=== PATIENT | female | born 1950 | race Caucasian/White ===

== ENCOUNTER → 2017-02-21 | Outpatient (CLI) | payer MEDICARE, BC ==
[~2017-02-21] MED LIST: ASPI-630 PO; CALC500T54 PO; ESTR0.5T3 PO; ESTR1PAT42 TD; GABA-585 PO; IBAN3DIS2 IV; MULT-245 PO; OMEP10CA3 PO; PRED1TAB PO; PSYL0.527 PO; SULF500T5 PO
--- NOTE | 2017-02-21 15:33 | RAD ---
DATE: 02/21/2017 EXAM: DIGITAL DIAGNOSTIC BILATERAL HISTORY: Right breast nodule at approximately the 7:00 position. COMPARISON: 08/01/2015. The history of breast reduction surgery and chronic deformity involving the periareolar area of the right breast has been provided This study was interpreted with the benefit of Computerized Aided Detection (CAD). FINDINGS: Breast Density: SCATTERED The breast parenchyma shows scattered fibroglandular densities. Breast parenchyma level B. The area of concern in the right breast was marked. Corresponding to the area of concern is a well-defined lucency having a benign imaging characteristics on mammography. Chronic deformity surrounding the right nipple is noted appearing similar. There are multiple curvilinear areas of calcification in both breasts. There are somewhat more conspicuous than on the previous examination but have an appearance very typical of fat necrosis. A definite suspect group of calcifications is not seen. In addition to the routine views coned compression magnification views were obtained targeted to the area of concern. On the additional images of the well-defined mass remains most consistent with an inclusion cyst or possible rectocele or area of fat necrosis the imaging characteristics are benign. Targeted ultrasound was performed. Corresponding to the palpable abnormality is a well-defined low-density mass. It does not have the characteristics of a simple cyst but the ultrasound features are most compatible with a benign mass. IMPRESSION: Probable benign findings. Right breast mammography and targeted ultrasound are suggested in 6 months to document stability. BI-RADS CATEGORY: 3 PROBABLE BENIGN FINDING(S-SHORT INTERVAL FOLLOW-UP SUGGESTED RECOMMENDED FOLLOW-UP: 6M 6 MONTH FOLLOW-UP PQRS compliance statement: Patient information was entered into a reminder system with a target due date 08/23/2017 for the next mammogram. Mammography is a sensitive method for finding small breast cancers, but it does not detect them all and is not a substitute for careful clinical examination. A negative mammogram does not negate a clinically suspicious finding and should not result in delay in biopsying a clinically suspicious abnormality. "Our facility is accredited by the [employer] Mammography Program." DICTATED AND SIGNED BY: TIFFANY CHENG MD DATE: 02/21/17 1006 MTDD
== END | disposition home or self-care (01) ==
LOC: MAMMO 08:30
PROVIDERS: ATTEND Family Medicine
DX: N63 Unspecified lump in breast (principal)
CPT/HCPCS: 76641; G0204; 77066

== ENCOUNTER 2018-03-30 14:25 | Inpatient (IN) | payer MEDICARE, BC ==
[~2018-03-30] VITALS: Ht 167.6 cm; Wt 90.3 kg
--- NOTE | 2018-03-30 14:45 | ED.ADGEN ---
Adult General HPI HPI The patient tripped while she was going after her dog Friday and fell onto the grass. She injured her left knee and the left side of her face without loss of consciousness. She was dazed. Since the fall, she's had onset of a headache. And today about 1 1/2 hours ago, she began having difficulty with word finding. She notes no focal weakness or numbness. She also has diffuse body aches. She has left knee injury. She came to the ED today because of headache and difficulty word finding. Review of Systems Review of Systems Constitutional: Denies fever or chills Eyes: Denies change in visual acuity, redness, or eye pain HENT: Denies nasal congestion or sore throat Respiratory: Denies cough or shortness of breath Cardiovascular: Denies chest pain or palpitations GI: Denies abdominal pain, nausea, vomiting, bloody stools or diarrhea : Denies dysuria or hematuria Musculoskeletal: Denies back pain or joint pain Integument: Denies rash or skin lesions Neurologic: With headache and aphasia,no focal weakness or sensory changes Endocrine: Denies polyuria or polydipsia All other systems were reviewed and found to be within normal limits, except as documented in this note. Allergies Allergies Allergies Coded Allergies Type Severity Reaction Last Updated Verified Cephalosporins Allergy Unknown 03/30/18 Yes cefazolin Allergy Unknown 03/15/15 Yes Physical Exam Physical Exam Constitutional: Well developed, well nourished, no acute distress, non-toxic appearance. HENT: Normocephalic, with left facial ecchymosis, no deformity, bilateral external ears normal, oropharynx moist, no oral exudates, nose normal. Eyes: PERRLA, EOMI, conjunctiva normal, no discharge. Neck: Normal range of motion, no tenderness, supple, no stridor. Cardiovascular:Heart rate regular rhythm, no murmur Lungs & Thorax: Bilateral breath sounds clear to auscultation Abdomen: Bowel sounds normal, soft, no tenderness, no masses, no pulsatile masses. Skin: Warm, dry, no erythema, no rash. With left facial ecchymosis, left knee ecchymosis Back: No tenderness, no CVA tenderness. Extremities: with left knee tenderness and swelling, no cyanosis, no clubbing, ROM intact, no edema. Neurologic: Alert and oriented X 3, normal motor function, normal sensory function, no focal deficits noted. Cranial nerves II through XII are intact, strength 5/5 upper and lower extremities symmetric bilaterally. No pronator drift. Gait normal. NIH score of 0. Psychologic: Affect normal, judgement normal, mood normal. Current Patient Data Vital Signs Vital Signs Date Time Temp Pulse Resp B/P (MAP) Pulse Ox O2 Delivery O2 Flow Rate FiO2 03/30/18 14:30 97.7 79 16 97 Room Air Lab Results Laboratory Tests Test 03/30/18 14:50 03/30/18 15:05 Urine Collection Type Unknown Urine Color Yellow Urine Clarity Clear Urine pH 6.0 Urine Specific [place] <=1.005 Urine Protein Neg (NEG-TRACE) Urine Glucose (UA) Neg mg/dL (NEG) Urine Ketones (Stick) 15 mg/dL (NEG) Urine Blood Neg (NEG) Urine Nitrite Neg (NEG) Urine Bilirubin Neg (NEG) Urine Urobilinogen Dipstick 0.2 mg/dL (0.2 mg/dL) Urine Leukocyte Esterase Neg (NEG) Urine RBC Rare /HPF (0-2) Urine WBC 5-10 /HPF (0-4) Urine Squamous Epithelial Cells Many /LPF Urine Bacteria Few /HPF (0-FEW) White Blood Count 7.2 x10^3/uL (4.0-11.0) Red Blood Count 4.47 x10^6/uL (3.50-5.40) Hemoglobin 14.9 g/dL (12.0-15.5) Hematocrit 44.0 % (36.0-47.0) Mean Corpuscular Volume 99 fL (79-100) Mean Corpuscular Hemoglobin 33 pg (25-35) Mean Corpuscular Hemoglobin Concent 34 g/dL (31-37) Red Cell Distribution Width 14.6 % (11.5-14.5) H Platelet Count 207 x10^3/uL (140-400) Neutrophils (%) (Auto) 65 % (31-73) Lymphocytes (%) (Auto) 26 % (24-48) Monocytes (%) (Auto) 8 % (0-9) Eosinophils (%) (Auto) 1 % (0-3) Basophils (%) (Auto) 0 % (0-3) Neutrophils # (Auto) 4.7 x10^3uL (1.8-7.7) Lymphocytes # (Auto) 1.9 x10^3/uL (1.0-4.8) Monocytes # (Auto) 0.5 x10^3/uL (0.0-1.1) Eosinophils # (Auto) 0.0 x10^3/uL (0.0-0.7) Basophils # (Auto) 0.0 x10^3/uL (0.0-0.2) Sodium Level 139 mmol/L (136-145) Potassium Level 4.3 mmol/L (3.5-5.1) Chloride Level 102 mmol/L (98-107) Carbon Dioxide Level 23 mmol/L (21-32) Anion Gap 14 (6-14) Blood Urea Nitrogen 21 mg/dL (7-20) H Creatinine 0.9 mg/dL (0.6-1.0) Estimated GFR (Cockcroft-Gault) 62.6 BUN/Creatinine Ratio 23 (6-20) H Glucose Level 76 mg/dL (70-99) Calcium Level 9.8 mg/dL (8.5-10.1) Total Bilirubin 0.6 mg/dL (0.2-1.0) Aspartate Amino Transferase (AST) 44 U/L (15-37) H Alanine Aminotransferase (ALT) 43 U/L (14-59) Alkaline Phosphatase 74 U/L (46-116) Troponin I Quantitative < 0.017 ng/mL (0-0.055) Total Protein 7.2 g/dL (6.4-8.2) Albumin 4.0 g/dL (3.4-5.0) Albumin/Globulin Ratio 1.3 (1.0-1.7) EKG EKG 14:57 ECG Normal sinus rhythm at 63 without acute changes Radiology/Procedures Radiology/[place] [address] IMAGING REPORT Signed PATIENT: BALDOMERO PRESCOTT ACCOUNT: [id number] : 1950 LOCATION: ER AGE: 68 SEX: F EXAM STATUS: REG ER ORD. PHYSICIAN: LORENA HAYES MD REASON: mild aphasia PROCEDURE: CT HEAD AND MAXILLOFACIAL WO Examination: CT head and maxillofacial bones without contrast HISTORY: History of fall, bruising of the left eye, aphasia COMPARISON: None available Technique: Axial CT images of the head was performed without contrast. Axial CT images of the maxillofacial bones were performed without contrast. Coronal and sagittal reformats are performed Exposure: One or more of the following individualized dose reduction techniques were utilized for this examination: 1. Automated exposure control 2. Adjustment of the mA and/or kV according to patient size 3. Use of iterative reconstruction technique FINDINGS: No abnormal attenuation within the brain parenchyma. No evidence of acute intracranial hemorrhage. No extra-axial fluid collections. No mass effect or midline shift. Ventricular size is appropriate. Basal cisterns are patent. No fractures identified.Bush-white differentiation is preserved.Globes and orbits are within normal limits. No acute fracture of the facial bones. There is moderate opacification of the left maxillary sinus likely sinus disease. Minimal fat stranding identified subcutaneous region of the left cheek anterior to the left maxillary sinus likely soft tissue injury. IMPRESSION: 1. No acute intracranial findings. 2. No acute fracture the facial bones. Electronically signed by: Jesse Reyes MD (03/30/2018 3:42 PM) [id number] DICTATED AND SIGNED BY: JESSE REYES MD DATE: 03/30/18 [id number] CC: TORREY GREGORIO MD; LORENA HAYES MD ~ [place] [address] IMAGING REPORT Signed PATIENT: BALDOMERO PRESCOTT ACCOUNT: [id number] : 1950 LOCATION: ER AGE: 68 SEX: F EXAM STATUS: REG ER ORD. PHYSICIAN: LORENA HAYES MD REASON: injury PROCEDURE: KNEE LEFT 4V Left knee with patella, 4 views, 03/30/2018: HISTORY: Fall No fracture or dislocation is identified. There is a small well-defined calcific density along the medial aspect of the medial femoral condyle compatible with old trauma. No significant joint effusion is seen. IMPRESSION: No acute bony abnormality is detected. Electronically signed by: Lonny Galan MD (03/30/2018 3:55 PM) [facility] DICTATED AND SIGNED BY: LONNY GALAN MD DATE: 03/30/18 [id number] CC: TORREY GREGORIO MD; LORENA HAYES MD ~ Course & Med Decision Making Course & Med Decision Making Patient presents with mild aphasia and recent history of head injury DDx-concussion, TIA, CVA, metabolic derangement The patient was stable emergency department. Head CT scan and Facial CT scans were unremarkable. Left knee x-ray was unremarkable. ECG and troponin showed no evidence of ACS or arrhythmia. Labs remarkable for elevated BUN. Neurologic exam remarkable for mild anomic aphasia, no focal weakness NIHSS=0, Patient not a candidate for TPA. Patient was given aspirin. 16:[address] Murillo who agrees with admission for further elevation of the patient's mild aphasia Final Impression Final Impression Clinical Impression Anomic Aphasia Left Facial contusion Left Knee contusion Dragon Disclaimer Dragon Disclaimer This electronic medical record was generated, in whole or in part, using a voice recognition dictation system. Departure Departure: Impression: Primary Impression: Aphasia Additional Impressions: Contusion of face Contusion of left knee, initial encounter Anomic aphasia Disposition: ADMITTED INPATIENT Admitting Physician: Edward Murillo Condition: STABLE LORENA HAYES MD Mar 30, 2018 14:45
[2018-03-30 15:32] LABS: BASO % 0 % (0-3); EOS % 1 % (0-3); HEMOGLOBIN 14.9 g/dL (12.0-15.5); LYMPH # 1.9 x10^3/uL (1.0-4.8); LYMPH % 26 % (24-48); MEAN CORPUSCULAR HEMOGLOBIN 33 pg (25-35); MEAN CORPUSCULAR HGB CONC 34 g/dL (31-37); MEAN CORPUSCULAR VOLUME 99 fL (79-100); MONO # 0.5 x10^3/uL (0.0-1.1); MONO % 8 % (0-9); NEUT # 4.7 x10^3uL (1.8-7.7); NEUT % 65 % (31-73); PLATELET COUNT 207 x10^3/uL (140-400); RED BLOOD COUNT 4.47 x10^6/uL (3.50-5.40); RED CELL DISTRIBUTION WIDTH 14.6 % (11.5-14.5); WHITE BLOOD COUNT 7.2 x10^3/uL (4.0-11.0)
[2018-03-30 15:41] LABS: BILIRUBIN,URINE NEG (NEG); CLARITY,URINE CLEAR; COLOR,URINE YELLOW; GLUCOSE,URINE NEG (NEG); NITRITE,URINE NEG (NEG); UROBILINOGEN,URINE 0.2 mg/dL (0.2 mg/dL)
[2018-03-30 15:42] LABS: BACTERIA,URINE FEW /HPF (0-FEW); RBC,URINE RARE /HPF (0-2); SQUAMOUS EPITHELIAL CELL,UR MANY /LPF
[2018-03-30 15:43] LABS: ALBUMIN/GLOBULIN RATIO 1.3 (1.0-1.7); CALCIUM 9.8 mg/dL (8.5-10.1); CREATININE 0.9 mg/dL (0.6-1.0); GFR 62.6; POTASSIUM 4.3 mmol/L (3.5-5.1); TOTAL BILIRUBIN 0.6 mg/dL (0.2-1.0); TOTAL PROTEIN 7.2 g/dL (6.4-8.2)
--- NOTE | 2018-03-30 15:46 | RAD ---
Examination: CT head and maxillofacial bones without contrast HISTORY: History of fall, bruising of the left eye, aphasia COMPARISON: None available Technique: Axial CT images of the head was performed without contrast. Axial CT images of the maxillofacial bones were performed without contrast. Coronal and sagittal reformats are performed Exposure: One or more of the following individualized dose reduction techniques were utilized for this examination: 1. Automated exposure control 2. Adjustment of the mA and/or kV according to patient size 3. Use of iterative reconstruction technique FINDINGS: No abnormal attenuation within the brain parenchyma. No evidence of acute intracranial hemorrhage. No extra-axial fluid collections. No mass effect or midline shift. Ventricular size is appropriate. Basal cisterns are patent. No fractures identified.Bush-white differentiation is preserved.Globes and orbits are within normal limits. No acute fracture of the facial bones. There is moderate opacification of the left maxillary sinus likely sinus disease. Minimal fat stranding identified subcutaneous region of the left cheek anterior to the left maxillary sinus likely soft tissue injury. IMPRESSION: 1. No acute intracranial findings. 2. No acute fracture the facial bones. Electronically signed by: Jesse Reyes MD (03/30/2018 3:42 PM) [id number]
--- NOTE | 2018-03-30 15:58 | RAD ---
Left knee with patella, 4 views, 03/30/2018: HISTORY: Fall No fracture or dislocation is identified. There is a small well-defined calcific density along the medial aspect of the medial femoral condyle compatible with old trauma. No significant joint effusion is seen. IMPRESSION: No acute bony abnormality is detected. Electronically signed by: Lonny Mar MD (03/30/2018 3:55 PM) [facility]
[2018-03-30] MEDS ORDERED: ASPIRIN 81 MG TAB.CHEW PO ONE (17:00)
[2018-03-30 17:21] VITALS: BP 131/83
[2018-03-30] MEDS ORDERED: MULT-706 PO (18:04)
[2018-03-30 19:48] VITALS: BP 113/73
[2018-03-30] MEDS ORDERED: CETAPHIL TP PRN (20:00)
[2018-03-30 22:38] VITALS: BP 116/73
[2018-03-30 22:41] VITALS: BP 110/71
[2018-03-31 05:05] VITALS: BP 126/80
--- NOTE | 2018-03-31 08:11 | RAD ---
Carotid ultrasound, 03/30/2018: History: Aphasia Duplex evaluation of the carotid arteries in neck was performed including grayscale, color-flow and spectral Doppler analysis. There is smooth intimal thickening in the common carotid arteries. There is mild atherosclerotic plaquing at the carotid bifurcations. The plaques are partially calcified with some shadowing and obscuration of a portion of the proximal left internal carotid artery. The peak systolic velocity in the left internal carotid artery is 48 cm/s with an end-diastolic velocity of 22 cm/s and an internal carotid common carotid artery ratio 1.2. The peak systolic velocity in the left internal carotid artery is 33 cm/s with an end-diastolic velocity of 13 cm/s and an internal carotid to common carotid artery ratio 1.0. These Doppler findings suggest narrowing in the 0-50% diameter range. Antegrade flow is present in both vertebral arteries in the neck. IMPRESSION: Mild atherosclerotic plaquing at the carotid bifurcations, left greater than right, with underlying luminal narrowing in the 0-50% diameter range bilaterally. Note: Stenosis calculations for CTA, MRA and conventional angiography are based upon determination of the distal ICA diameter in accordance with the NASCET methodology. Stenosis calculations for Doppler studies are derived from validated velocity criteria which are known to correlate with NASCET methodology of determining stenosis.
--- NOTE | 2018-03-31 09:52 | SSS ---
ADMIT DATE: 03/31/2018 The patient is a 68-year-old female patient, who came to the Emergency Room complaining of having difficulty with word finding. HISTORY OF PRESENT ILLNESS: The patient has tripped while she was going after her dog on 03/28/2018, she fell down to the grass, she injured her left knee and left side of her face without loss of consciousness. She was days since the fall. She has had onset of headache. When and she came yesterday evening, she began having difficulty with word finding about an hour and half before she arrived to the Emergency Room. She notes no focal weakness or numbness. She also has diffuse body aches. She has left knee injury and she basically came to the Emergency Room because of headache and difficulty finding words. She was extensively investigated in the Emergency Room. She did have x-ray of her left knee, which showed no acute bony abnormality detected and her CT scan of the head and facial bones showed no acute intracranial finding, no acute fracture of the facial bones, was admitted for observation and we did order bilateral carotid Doppler ultrasound and to consult the neurologist. PAST MEDICAL HISTORY: Significant for ankylosing spondylitis, varicose veins and elevated liver enzymes. PAST SURGICAL HISTORY: Significant for total abdominal hysterectomy, bilateral salpingo-oophorectomy, gastric bypass surgery, left-sided carpal tunnel release, tonsillectomy and adenoidectomy, bilateral bunionectomy, vein stripping, and cholecystectomy. ALLERGIES: She is allergic to CEPHALOSPORIN. MEDICATIONS: She is currently on following medications: She is on sulfadiazine 500 mg daily, aspirin 81 mg once a day, gabapentin 100 mg once a day, calcium carbonate. She is on psyllium husk, omeprazole, multivitamin. She is also on Humira as well as multivitamins. FAMILY HISTORY: She has 4 brothers and 6 sisters. One brother in the age of 50 because of alcoholism. Her sister while at 2-1/2 years old because of congenital heart disease. Her mother at age of 84 because of colon cancer. Father at the age of 67 because of lung cancer and alcoholism. SOCIAL HISTORY: She is , has no children. She does not smoke. Drinks alcohol occasionally. She is a retired registered nurse. REVIEW OF SYSTEMS: The patient denied any blurring of vision, cataract, glaucoma or macular degeneration. Denied any earache, tinnitus or sensorineural deafness. Denied any nosebleeds, stuffy nose or postnasal drip. Denied any sore throat, sore tongue, toothache, hoarseness of voice or difficulty swallowing. Denied any nausea, vomiting, diarrhea or constipation. Denied any hematemesis, melena or hematochezia. Denied any dysuria, frequency or hematuria. Denied any chest pain, shortness of breath, orthopnea, paroxysmal nocturnal dyspnea. Denied any cough, phlegm or hemoptysis. She did complain of difficulty finding words, but denied any tingling or numbness or weakness or unsteady gait. PHYSICAL EXAMINATION: GENERAL: On arrival to the Emergency Room, she looked well and was clearly in no apparent respiratory distress. There was no pallor, jaundice or cyanosis. No lymphadenopathy, no thyromegaly. No jugular venous distention. No limb edema. VITAL SIGNS: Her heart rate was 79, blood pressure was 120/70, temperature was 97.7, respiratory rate was 16, and oxygen saturation was 97% on room air. HEAD, EYES, EARS, NOSE AND THROAT: Showed normocephalic with ecchymosis around her left forehead, left cheek and around her left eye. NECK: Supple. HEART: Showed normal first and second heart sounds. No gallop, rub or murmur. CHEST: Clear to auscultation. No crepitation or rhonchi. ABDOMEN: Distended, soft, nontender. NEUROLOGIC: She is awake, alert, responding appropriately. All cranial nerves intact. EXTREMITIES: She moves all extremities without difficulty. LABORATORY DATA: While in the Emergency Room, she did complain of difficulty finding words. LABORATORY DATA: Her lab work on admission showed a white cell count of 7200, hemoglobin 14.9, hematocrit 44, MCV 99 and platelet count 207,000 with normal manual differential. Her serum sodium was 139, potassium 4.3, chloride 102, bicarbonate 23, anion gap of 14, BUN 21, creatinine 0.9, estimated GFR was 63 mL per minute. Her glucose was 76, calcium was 9.8. Total bilirubin, ALT, alkaline phosphatase normal. AST is slightly elevated. Total protein was 7.2, albumin 4. Urinalysis showed the urine was yellow, clear with a pH of 6, specific gravity of 1.005. The urine was negative for protein and glucose. There was trace of ketones, negative for blood, nitrite and leukocyte esterase. There are rare rbc's, 5-10 wbc's, very few bacteria. Her knee x-ray showed no acute bony abnormality and no evidence of fracture. The CT scan of the head and facial bones showed no acute intracranial finding and no fractures in the facial bones. She has bilateral carotid Doppler ultrasound, which showed mild atherosclerotic plaquing at the carotid bifurcation, left greater than right with underlying luminal narrowing 0-50% diameter range bilaterally. ASSESSMENT AND PLAN: The patient was seen by Dr. Juarez and it was felt that the patient is safe to be discharged home to continue on a baby aspirin and to follow him in his office in 2 weeks' time. FINAL DISCHARGE DIAGNOSIS: Possible TIA with normal CT scan of the head and hemodynamically insignificant plaquing both carotid arteries. Other medical problems include ankylosing spondylitis and slightly impaired liver enzymes. KEYUR ALLEN MD DR: CASANDRA/brittany JOB#: [id number] / [id number]
--- NOTE | 2018-04-01 03:24 | PN ---
DATE: SUBJECTIVE: The patient denies any new medical or neurological complaints. She denies headaches, visual disturbances, nausea, vomiting, chest pain, shortness of breath, or palpitation. OBJECTIVE: GENERAL: Well-developed, well-nourished pleasant female, not in acute distress. VITAL SIGNS: Blood pressure 126/80, respiratory rate 18, pulse 63, temperature 97.9, and oxygen saturation 95% on room air. HEENT: Normocephalic, status post a fall with ecchymosis around the left orbital region, otherwise unremarkable. NECK: Supple. Negative for carotid bruit, lymphadenopathy, JVD, or thyromegaly. LUNGS: Clear to A and P. CARDIOVASCULAR: Regular rate and rhythm, normal S1, S2. There is no S3, S4, or murmur. ABDOMEN: Soft. Bowel sounds positive. EXTREMITIES: Negative for cyanosis, clubbing, or pitting edema. NEUROLOGIC: Normal mental status and intact cranial nerves. There is no focal motor or sensory deficit. Deep tendon reflexes were symmetric and hypoactive with absent Achilles responses. Gait and coordination are normal. DIAGNOSTIC DATA: Carotid Doppler study revealed mild atherosclerotic changes with estimated narrowing of internal carotid arteries at 0-50, greater on the left side. Otherwise, unremarkable. IMPRESSION: 1. Status post fall with mild frontal headaches with normal neurological examination, normal head CT scan, and nonsignificant stenosis on carotid arteries. 2. Anxiety and a longstanding history of ankylosing spondylitis. RECOMMENDATIONS: Continue with current management initiated by Dr. Murillo. Follow up in Neurology Clinic after 2 weeks from discharge. M Cyril MOREL MD DR: JOHN/brittany JOB#: [id number] / [id number]
--- NOTE | 2018-04-01 04:22 | CONS ---
DATE OF CONSULTATION: 03/30/2018 REFERRING PHYSICIAN: Dr. Murillo. REASON FOR CONSULTATION: Headaches, status post a fall with a closed head injury and difficulty finding words. HISTORY OF PRESENT ILLNESS: This is a 68-year-old right-handed pleasant female who was admitted through the Emergency Room after she presented with blunt head injury 2 days ago while walking her dog; she fell forward on the grass, but hit her knees on concrete. The patient denies any loss of consciousness or any preceding symptoms prior to the fall, has chest pain, palpitations, weakness or paresthesia. The patient did not have any confusion, bowel or bladder dysfunctions or seizures. The fall resulted in multiple bruises over the left orbital regions and both knees, more on the left knee. Today and around noon, the patient was home and had difficulty finding some words or mixed with word. She was advised by her to come into the Emergency Room to rule out any TIA or stroke or other neurological problems. According to the patient, since arrival to the Emergency Room, the patient has not had any difficulty finding words or any other new neurological complaints. She did have mild frontal headaches, but she denies nausea, vomiting, photophobia or phonophobia. Initial nonenhanced head CT scan revealed no evidence of acute intracranial process as well as a CT of the facial bone. Carotid Doppler study was performed, but the result is not back yet. PAST MEDICAL HISTORY: Significant for diffuse ankylosing spondylitis affecting the spine and the joints in the upper and lower extremities. She developed uveitis as a problem with ankylosing spondylitis, history of carpal tunnel syndrome, chronic lower back pain, anxiety, cancer, and dry eyes, restless leg syndrome for many years. PAST SURGICAL HISTORY: Significant for gastric bypass, hysterectomy, left carpal tunnel release. SOCIAL HISTORY: The patient is . She denies smoking, alcohol drinking, or illicit drug use. FAMILY HISTORY: Father had lung cancer and diabetes mellitus. Mother had colon cancer and sister had arthritis, brothers with hypertension and mother with alcohol abuse. CURRENT HOME MEDICATIONS: Aspirin 81 mg daily, calcium 500 mg q.8 chewing tablet, gabapentin 100 mg tablet, she takes 200 mg in the morning and 400 mg in the evening, omeprazole 10 mg capsule should be 20 mg daily, and sulfadiazine 500 mg 1 tablet daily. ALLERGIES: CEPHALOSPORINS and . REVIEW OF SYSTEMS: A 10-point review of system was performed and consistent with mild headaches, status post a fall and blunt head injury along with anxiety and dry eyes and generalized joint pain is due to ankylosing spondylitis. PHYSICAL EXAMINATION: GENERAL: A well-developed, well-nourished white male, not in acute distress. VITAL SIGNS: She weighs 199 pounds. Blood pressure 113/73, respiratory rate 20, pulse is 89 regular, temperature 97.7, oxygen saturation 97% on room air. HEENT: Normocephalic. The patient had bruises and ecchymosis in the left orbital regions and a mild bruises on forehead. NECK: Supple. Negative for carotid bruit, lymphadenopathy, JVD or thyromegaly. LUNGS: Clear A to P. CARDIOVASCULAR: Regular rate and rhythm, normal S1, S2. There is no S3, S4, or murmur. ABDOMEN: Soft. Bowel sounds positive. EXTREMITIES: Negative for cyanosis, clubbing, or pitting edema. NEUROLOGICAL: Mental status: The patient is alert and oriented x 3. Speech is fluent. There is no language dysfunction. Memory, judgment, and abstract thinking are normal. The patient denies hallucination or delusion. CRANIAL NERVES: Visual polo are full. The pupils are reactive to light and accommodation. The extraocular movements are intact. There is no nystagmus. There is no facial, motor or sensory deficit. Hearing is intact bilaterally. The palate is elevated symmetrically. Sternocleidomastoid muscles are powerful bilaterally. The patient shrugs her shoulders symmetrically and protrudes her tongue in the midline without fasciculation or atrophy. Motor examination, no focal muscle bulk was seen. The tone is normal. The strength is 5/5 throughout. Sensory examination revealed normal pinprick, light touch, vibratory and position senses. Deep tendon reflexes were symmetric and hypoactive with absent Achilles responses. Gait and coordination are normal. DIAGNOSTIC: Initial nonenhanced head chest x-ray along with facial prone revealed no abnormalities. LABORATORY DATA: CBC revealed white cells of 7.2, hemoglobin 14.9, hematocrit 44, platelet count 207,000. Chemistry revealed sodium of 139, potassium 4.3, chloride 102, CO2 of 23, BUN 21, creatinine 0.9, glucose 76. AST is 44, ALT is 43, with normal total bilirubin. Troponin is normal. Urinalysis is negative for urinary leukocyte esterase with urine white blood cells of 5-10 with a few bacteria. IMPRESSION: 1. Status post fall resulting in blunt head injuries with normal neurological examination, but absent Achilles responses bilaterally. 2. Longstanding history of ankylosing spondylitis affecting the spine and joint in the upper and lower extremities. 3. Gastroesophageal reflux disease, anxiety, and chronic low back pain. 4. Less likely a transient ischemic attack. RECOMMENDATION: 1. The patient underwent a carotid Doppler study, but the result is not back yet. 2. Continue with the current management initiated by Dr. Murillo and home medications. 3. I encouraged the patient to drink enough water. M Cyril MOREL MD DR: JOHN/brittany JOB#: [id number] / [id number]
== END 2018-03-31 09:39 | disposition home or self-care (01) | DRG 69 ==
LOC: ER 14:25 → 1 SOUTH 16:15
PROVIDERS: ADMIT Internal Medicine; ATTEND Internal Medicine
DX: G45.9 Transient cerebral ischemic attack, unspecified (principal); R47.01 Aphasia; W01.0XXA Fall on same level from slipping, tripping and stumbling without subsequent striking against object, initial encounter; G25.81 Restless legs syndrome; F41.9 Anxiety disorder, unspecified; G89.29 Other chronic pain; S00.83XA Contusion of other part of head, initial encounter; K21.9 Gastro-esophageal reflux disease without esophagitis; M45.9 Ankylosing spondylitis of unspecified sites in spine; S80.02XA Contusion of left knee, initial encounter; Z80.0 Family history of malignant neoplasm of digestive organs; Z80.1 Family history of malignant neoplasm of trachea, bronchus and lung; Z82.49 Family history of ischemic heart disease and other diseases of the circulatory system; Z83.3 Family history of diabetes mellitus; Z82.61 Family history of arthritis; Y93.89 Activity, other specified; Y92.89 Other specified places as the place of occurrence of the external cause; Y99.8 Other external cause status; Z90.710 Acquired absence of both cervix and uterus; Z98.84 Bariatric surgery status; Z79.82 Long term (current) use of aspirin; Z79.899 Other long term (current) drug therapy; Z90.722 Acquired absence of ovaries, bilateral; Z88.1 Allergy status to other antibiotic agents; Z81.1 Family history of alcohol abuse and dependence
CPT/HCPCS: 36415; 70450; 70486; 73564; 80053; 80061; 81001; 84484; 85025; 87086; 93005; 93880; 99285-25

== ENCOUNTER 2018-08-18 19:44 | Emergency (ER) | payer MEDICARE, BC ==
[~2018-08-18] VITALS: Ht 165.1 cm; Wt 88.5 kg
[~2018-08-18 19:44] MED LIST changes: +MULT-706 PO
[2018-08-18] MEDS ORDERED: IV NORMAL SALINE 1,000ML 1,000 ML IV SCH (19:49)
[2018-08-18 20:28] LABS: BASO # 0.2 x10^3/uL (0.0-0.2); BASO % 1 % (0-3); EOS % 0 % (0-3); HEMATOCRIT 35.8 % (36.0-47.0); HEMOGLOBIN 11.7 g/dL (12.0-15.5); LYMPH # 2.1 x10^3/uL (1.0-4.8); LYMPH % 14 % (24-48); MEAN CORPUSCULAR HEMOGLOBIN 32 pg (25-35); MEAN CORPUSCULAR HGB CONC 33 g/dL (31-37); MEAN CORPUSCULAR VOLUME 97 fL (79-100); MONO # 1.9 x10^3/uL (0.0-1.1); MONO % 12 % (0-9); NEUT # 11.3 x10^3uL (1.8-7.7); NEUT % 72 % (31-73); PLATELET COUNT 181 x10^3/uL (140-400); RED BLOOD COUNT 3.71 x10^6/uL (3.50-5.40); RED CELL DISTRIBUTION WIDTH 14.5 % (11.5-14.5); WHITE BLOOD COUNT 15.6 x10^3/uL (4.0-11.0)
[2018-08-18] MEDS ORDERED: IV NORMAL SALINE 1,000ML 1,000 ML IV ONE (20:45)
[2018-08-18] MEDS ORDERED: LEVO500T59 PO (20:48)
--- NOTE | 2018-08-18 20:55 | RAD ---
Examination: CHEST PA LATERAL History: Fever, cough Comparison/Correlation: None Findings: PA and lateral views of chest were obtained. Heart size and pulmonary vasculature are normal. No pneumothorax. No definite effusion. Subtle right lateral mid thoracic nodular infiltrate is evident. Left-sided diaphragmatic surgical clips. Impression: Subtle nodular right lateral mid thoracic infiltrate. Correlate with prior exams assess stability. Recommended interval follow-up chest x-ray exam to assess stability. Electronically signed by: Ang Zelaya MD (08/18/2018 8:51 PM) [facility]
[2018-08-18 21:06] LABS: CALCIUM 7.8 mg/dL (8.5-10.1); CREATININE 0.8 mg/dL (0.6-1.0); GFR 71.8; POTASSIUM 3.7 mmol/L (3.5-5.1)
[2018-08-18 21:09] LABS: % BANDS 11 % (0-9); % BASOS 1 % (0-3); % LYMPHS 11 % (24-48); % MONOS 12 % (0-10); % SEGS 65 % (35-66)
[2018-08-18 21:10] LABS: HYPERSEGS PRESENT; PLT ESTIMATE ADEQUATE (ADEQUATE); SMUDGE CELLS PRESENT; TOXIC GRANULATION MOD; TOXIC VACUOLATION SLIGHT
--- NOTE | 2018-08-18 21:39 | PHYS DOC ---
Adult General Chief Complaint Chief Complaint fever HPI HPI 68 years old female who presented emergency department with a fever chills body aches and dry, she was on [place]. patient also takes Humira she was seen and evaluated by primary care provider who did chest x-ray and found to have pneumonia she was sent to the emergency department for IV antibiotic Review of Systems Review of Systems Constitutional: + fever or chills [] Eyes: Denies change in visual acuity, redness, or eye pain [] HENT: Denies nasal congestion or sore throat [] Respiratory: + cough or shortness of breath [] Cardiovascular: No additional information not addressed in HPI [] GI: Denies abdominal pain, nausea, vomiting, bloody stools or diarrhea [] : Denies dysuria or hematuria [] Musculoskeletal: Denies back pain or joint pain [] Integument: Denies rash or skin lesions [] Neurologic: Denies headache, focal weakness or sensory changes [] Endocrine: Denies polyuria or polydipsia [] All other systems were reviewed and found to be within normal limits, except as documented in this note. Current Medications Current Medications Current Medications Medications (Trade) Dose Ordered Sig/Misti Start Time Stop Time Status Last Admin Dose Admin Levofloxacin/ Dextrose 150 ml @ 150 mls/hr 1X ONCE 08/18/18 20:30 08/18/18 21:29 DC 08/18/18 20:48 150 MLS/HR Sodium Chloride 1,000 ml @ 1,000 mls/hr 1X ONCE 08/18/18 20:45 08/18/18 21:44 Allergies Allergies Allergies Coded Allergies Type Severity Reaction Last Updated Verified Cephalosporins Allergy Unknown 03/30/18 Yes cefazolin Allergy Unknown 03/15/15 Yes Physical Exam Physical Exam Constitutional: Well developed, well nourished, no acute distress, non-toxic appearance. [] HENT: Normocephalic, atraumatic, bilateral external ears normal, oropharynx moist, no oral exudates, nose normal. [] Eyes: PERRLA, EOMI, conjunctiva normal, no discharge. [] Neck: Normal range of motion, no tenderness, supple, no stridor. [] Cardiovascular:Heart rate regular rhythm, no murmur [] Lungs & Thorax: Bilateral breath sounds clear to auscultation [] Abdomen: Bowel sounds normal, soft, no tenderness, no masses, no pulsatile masses. [] Skin: Warm, dry, no erythema, no rash. [] Back: No tenderness, no CVA tenderness. [] Extremities: No tenderness, no cyanosis, no clubbing, ROM intact, no edema. [] Neurologic: Alert and oriented X 3, normal motor function, normal sensory function, no focal deficits noted. [] Psychologic: Affect normal, judgement normal, mood normal. [] Current Patient Data Vital Signs Vital Signs Date Time Temp Pulse Resp B/P (MAP) Pulse Ox O2 Delivery O2 Flow Rate FiO2 08/18/18 19:53 98.5 88 20 96 Room Air Lab Results Laboratory Tests Test 08/18/18 20:07 08/18/18 20:57 White Blood Count 15.6 x10^3/uL (4.0-11.0) H Red Blood Count 3.71 x10^6/uL (3.50-5.40) Hemoglobin 11.7 g/dL (12.0-15.5) L Hematocrit 35.8 % (36.0-47.0) L Mean Corpuscular Volume 97 fL (79-100) Mean Corpuscular Hemoglobin 32 pg (25-35) Mean Corpuscular Hemoglobin Concent 33 g/dL (31-37) Red Cell Distribution Width 14.5 % (11.5-14.5) Platelet Count 181 x10^3/uL (140-400) Neutrophils (%) (Auto) 72 % (31-73) Lymphocytes (%) (Auto) 14 % (24-48) L Monocytes (%) (Auto) 12 % (0-9) H Eosinophils (%) (Auto) 0 % (0-3) Basophils (%) (Auto) 1 % (0-3) Neutrophils # (Auto) 11.3 x10^3uL (1.8-7.7) H Lymphocytes # (Auto) 2.1 x10^3/uL (1.0-4.8) Monocytes # (Auto) 1.9 x10^3/uL (0.0-1.1) H Eosinophils # (Auto) 0.0 x10^3/uL (0.0-0.7) Basophils # (Auto) 0.2 x10^3/uL (0.0-0.2) Segmented Neutrophils % 65 % (35-66) Band Neutrophils % 11 % (0-9) H Lymphocytes % 11 % (24-48) L Monocytes % 12 % (0-10) H Basophils % 1 % (0-3) Hypersegmented Neutrophils Present Smudge Cells Present Toxic Granulation Mod Toxic Vacuolation Slight Dohle Bodies Few Platelet Estimate Adequate (ADEQUATE) Large Platelets Occ Sodium Level 138 mmol/L (136-145) Potassium Level 3.7 mmol/L (3.5-5.1) Chloride Level 102 mmol/L (98-107) Carbon Dioxide Level 25 mmol/L (21-32) Anion Gap 11 (6-14) Blood Urea Nitrogen 16 mg/dL (7-20) Creatinine 0.8 mg/dL (0.6-1.0) Estimated GFR (Cockcroft-Gault) 71.8 Glucose Level 99 mg/dL (70-99) Lactic Acid Level 0.8 mmol/L (0.4-2.0) Calcium Level 7.8 mg/dL (8.5-10.1) L EKG EKG [] Radiology/Procedures Radiology/Procedures [] Course & Med Decision Making Course & Med Decision Making Pertinent Labs and Imaging studies reviewed. (See chart for details) [] Final Impression Final Impression [] Problems: (1) Pneumonia Qualifiers: Qualified Codes: J18.1 - Lobar pneumonia, unspecified organism Dragon Disclaimer Dragon Disclaimer This electronic medical record was generated, in whole or in part, using a voice recognition dictation system. ABIOLA LONGORIA MD Aug 18, 2018 21:39
[2018-08-18 22:20] VITALS: BP 111/66
--- NOTE | 2018-08-19 05:58 | EKG ---
[address] [address] Test Date: 2018-08-18 Test Time: 21:18:50 Pat Name: BALDOMERO PRESCOTT Department: Room: Gender: F Plasterer Maintenance: : 1950 Requested By: ABIOLA LONGORIA Order Number: [id number] Reading MD: Jordan Cleveland Measurements Intervals Baggs Rate: 81 P: 26 [place]: 152 QRS: 56 QRSD: 90 T: 39 QT: 366 QTc: 426 Interpretive Statements SINUS RHYTHM NONSPECIFIC ST-T WAVE CHANGES. Electronically Signed On 08-19-2018 8:54:52 LOCATION ANALYST by Jordan Cleveland
== END 2018-08-18 22:32 | disposition home or self-care (01) ==
LOC: ER 19:44
DX: J18.1 Lobar pneumonia, unspecified organism (principal); Z88.1 Allergy status to other antibiotic agents
CPT/HCPCS: 36415; 71046; 80048; 83605; 85007; 85025; 87040; 93005; 96365; 99284; J1956; J7030

== ENCOUNTER → 2018-08-21 | Outpatient (CLI) | payer MEDICARE, BC ==
[2018-08-18 22:20] VITALS: BP 111/66
[~2018-08-21] MED LIST changes: +LEVO500T59 PO
--- NOTE | 2018-08-21 16:45 | RAD ---
Complete abdominal ultrasound History: ELEVATED LFTS. Findings: Aorta: No evidence of aneurysm. Inferior vena cava: Patent Pancreas: Unremarkable Liver: Unremarkable and not enlarged Gallbladder: Surgically removed Bile ducts: Common bile duct measures 4 mm. Right kidney: 11.2 cm length. No evidence of hydronephrosis. Left kidney: 10.3 cm length. No evidence of hydronephrosis. Spleen: Not enlarged Impression: No significant sonographic abnormality, postcholecystectomy. Electronically signed by: Eliceo Law MD (08/21/2018 4:41 PM) [id number]
== END | disposition home or self-care (01) ==
LOC: US 09:42
PROVIDERS: ATTEND Family Medicine
DX: R94.5 Abnormal results of liver function studies (principal)
CPT/HCPCS: 76700

== ENCOUNTER → 2018-08-27 | Outpatient (CLI) | payer MEDICARE, BC ==
[2018-08-18 22:20] VITALS: BP 111/66
[~2018-08-27] MED LIST changes: +IOHEXOL 300 MG/ML 75 ML VIAL. IV ONE
--- NOTE | 2018-08-27 16:17 | RAD ---
Examination: CT CHEST W/CONTRAST History: Pneumonia, OMNI 300 75ml Comparison/Correlation: 08/12/2018 two-view chest x-ray exam Findings: Axial images of chest were obtained following IV contrast. Sagittal and coronal reformatted images were provided. Excellent opacification of the thoracic aorta and pulmonary arterial vasculature is identified. Thoracic aorta is normal. Central pulmonary arterial vasculature is unremarkable. No pleural or pericardial effusion. Patchy infiltrates involving the right upper lobe posteriorly with nodular appearance. Patchy atelectasis or infiltrate involving the anterior right mid to lower thoracic level within the upper lobe adjacent to minor fissure is also present. Minimal nodular infiltrate involving the lateral, anterior left mid thoracic level is seen on axial image 48 of series 4. Minimal punctate nodular infiltrate involving the posterior left upper lung field also seen. No enlarged thoracic lymph nodes. Cholecystectomy evident. Suture material identified about the stomach. Impression: Patchy infiltrates are identified involving the right upper lobe posteriorly. Punctate nodularity and possibly infiltrate is noted to a much lesser extent involving lung polo otherwise. Infectious etiology present. Follow-up to resolution recommended. Electronically signed by: Ang Zelaya MD (08/27/2018 2:47 PM) [id number]
== END | disposition home or self-care (01) ==
LOC: CT 13:50
PROVIDERS: ATTEND Family Medicine
DX: J18.1 Lobar pneumonia, unspecified organism (principal); R91.8 Other nonspecific abnormal finding of lung field; Z90.49 Acquired absence of other specified parts of digestive tract
CPT/HCPCS: 71260; Q9967

== ENCOUNTER → 2019-06-16 | Outpatient (CLI) | payer MEDICARE, BC ==
[~2019-06-16] MED LIST changes: -OMEP10CA3 PO; +OMEP10CA4 PO
[2019-06-16 09:09] LABS: CALCIUM 8.7 mg/dL (8.5-10.1); CREATININE 0.7 mg/dL (0.6-1.0); GFR 83.5; POTASSIUM 4.5 mmol/L (3.5-5.1)
--- NOTE | 2019-06-16 10:37 | RAD ---
CT study of the abdomen and pelvis with and without contrast-CT urogram. Clinical indications: Microscopic hematuria. TECHNIQUE: Noncontrast helical CT scanning of the abdomen and pelvis was performed. Following IV infusion of 75 cc of Omnipaque 300, repeat helical CT scanning of the abdomen and pelvis was performed using the CT urogram protocol. PQRS compliance Statement One or more of the following individualized dose reduction techniques were utilized for this study: 1. Automated exposure control 2. Adjustment of the mA and/or kV according to patient size 3. Use of iterative reconstruction technique COMPARISON: No previous abdomen or pelvis CT. Chest CT dated August 27, 2018. FINDINGS: The liver and spleen and pancreas are normal. The gallbladder is surgically absent. No extra hepatic biliary ductal dilatation is seen. No focal aneurysmal dilatation of the abdominal aorta is seen. No enlarged abdominal or pelvic lymphadenopathy is evident. Uterus is surgically absent. Moderate fecal retention is seen throughout the colon and rectum. No obstructive bowel pattern is evident. No free air or free fluid or mesenteric edema is seen. Postsurgical changes of the stomach are seen. Small supraumbilical right paramidline hernia is seen containing antimesenteric side of a short segment of small bowel. No bowel wall thickening or inflammation is seen here. No lytic process is seen. There are new right lung base nodular infiltrates. The largest is seen within the right lateral lower lobe which extends to the pleura measuring 22 mm. There is chronic atelectasis of the inferior segment of the lingula. There is chronic scarring of the left lateral costophrenic angle. Chronic fine nodularity of the left lateral lower lobe is seen. No hydronephrosis or hydroureter or urinary tract stone is evident. No renal mass is seen on either side. Incomplete opacification of both ureters is seen. No other filling defect is seen. Urinary bladder is not distended. No filling defect of the urinary bladder is seen. IMPRESSION: No abnormality of the urinary tract is seen. New nodular lung infiltrates right lower lobe. Recommend chest CT with IV contrast for further evaluation. Moderate fecal retention throughout the colon and rectum. Small anterior abdominal wall hernia. Electronically signed by: Tuan Fields MD (06/16/2019 10:34 AM) [facility]
== END | disposition home or self-care (01) ==
LOC: CT 08:06
PROVIDERS: ATTEND Family Medicine
DX: K43.9 Ventral hernia without obstruction or gangrene (principal); K59.00 Constipation, unspecified; R91.8 Other nonspecific abnormal finding of lung field
CPT/HCPCS: 36415; 74178; 80048; Q9967

== ENCOUNTER 2019-08-15 17:12 | Emergency (ER) | payer MEDICARE, BC ==
[~2019-08-15] VITALS: Ht 165.1 cm; Wt 89.4 kg
[~2019-08-15 17:12] MED LIST changes: -IOHEXOL 300 MG/ML 75 ML VIAL. IV ONE
--- NOTE | 2019-08-15 17:26 | PHYS DOC ---
Past History Past Medical History: Other Additional Past Medical Histor: ankylosing spondylitis (PARESH LOYD DO) Past Medical History: Arthritis (JUAN J VARGAS MD) Past Surgical History: Gastric Bypass, Hysterectomy, Other (PARESH LOYD DO) Smoking: Non-smoker Alcohol Use: Occasionally Drug Use: None (PARESH LOYD DO) Adult General Chief Complaint Chief Complaint: MECHANICAL FALL HPI HPI Patient is a 69-year-old female presents complaining of right shoulder and upper arm pain and right knee and thigh pain. Patient was cleaning snow off of her car in her garage, while wearing snow/ice crusted boots. She slipped falling with her right arm over her head and also striking the left knee. The shoulder hurts worse than the knee. Knee only hurts with movement. She was given 100 g of fentanyl by EMS injury nasal prior to arrival. There was no head injury. No loss of consciousness. No syncopal episode. No numbness or tingling. Pain is moderate to severe. Increased pain with movement.[] (PARESH LOYD DO) Review of Systems Review of Systems Constitutional: Denies fever or chills [] Eyes: Denies change in visual acuity, redness, or eye pain [] HENT: Denies nasal congestion or sore throat [] Respiratory: Denies cough or shortness of breath [] Cardiovascular: No chest pain or palpitations[] GI: Denies abdominal pain, nausea, vomiting, bloody stools or diarrhea [] : Denies dysuria or hematuria [] Musculoskeletal: Denies back pain, see history of present illness[] Integument: Denies rash or skin lesions [] Neurologic: Denies headache, focal weakness or sensory changes [] Endocrine: Denies polyuria or polydipsia [] All other systems were reviewed and found to be within normal limits, except as documented in this note. (PARESH LOYD DO) Allergies Allergies Allergies Coded Allergies Type Severity Reaction Last Updated Verified Cephalosporins Allergy Unknown 03/30/18 Yes cefazolin Allergy Unknown 03/15/15 Yes (PARESH LOYD DO) Physical Exam Physical Exam Constitutional: Well developed, well nourished, moderate discomfort, non-toxic appearance. [] HENT: Normocephalic, atraumatic, bilateral external ears normal, oropharynx moist, no oral exudates, nose normal. [] Eyes: PERRLA, EOMI, conjunctiva normal, no discharge. [] Neck: Normal range of motion, no tenderness, supple, no stridor. [] Cardiovascular:Heart rate regular rhythm, no murmur [] Lungs & Thorax: Bilateral breath sounds clear to auscultation [] Abdomen: Bowel sounds normal, soft, no tenderness, no masses, no pulsatile masses. Pelvis is stable in 3 planes [] Skin: Warm, dry, no erythema, no rash. [] Back: No tenderness, no CVA tenderness. [] Extremities: Right shoulder has significant tenderness. No obvious step off or deformity. No elbow tenderness. She is distally neurovascularly intact. Range of motion was not attempted initially with the elbow due to the discomfort. Right knee has tenderness to palpation in the patella and suprapatellar region. Decreased active range of motion secondary to pain in that region. No significant swelling. No effusion. There is a contusion noted at the speed or pole of the patella. No varus or valgus laxity. No hip tenderness. No ankle tenderness. She is distally neurovascularly intact. The other 2 extremities show: No tenderness, no cyanosis, no clubbing, ROM intact, no edema. [] Neurologic: Alert and oriented X 3, normal motor function, normal sensory function, no focal deficits noted. [] Psychologic: Affect normal, judgement normal, mood normal. [] (PARESH LOYD DO) EKG EKG [] (PARESH LOYD DO) EKG My interpretation of EKG shows a sinus rhythm at 65 bpm. There is nonspecific contour abnormalities in anterior septal region. But no findings acute STEMI with contralateral changes. (JUAN J VARGAS MD) Radiology/Procedures Radiology/Procedures [] (PARESH LOYD DO) Radiology/[place] [address] IMAGING REPORT Signed PATIENT: BALDOMERO PRESCOTT ACCOUNT: [id number] : 1950 LOCATION: ER AGE: 69 SEX: F EXAM STATUS: REG ER ORD. PHYSICIAN: JUAN J VARGAS MD REASON: fall, MULTIPLE FRACTURES, PREOP PROCEDURE: PORTABLE CHEST 1V Single view chest dated 08/15/2019: Comparison made to 08/18/2018. Clinical Indication: Preop for fractures.. Findings: Single upright portable exam of the chest was performed. Heart size and mediastinal contours are within normal limits given technique. The lungs are clear without evidence of focal consolidation. Vascular interstitium is within normal limits. Proximal right humerus fracture again noted. Impression:: No acute radiographic abnormality. Electronically signed by: Eliceo Mcallister MD (08/15/2019 7:55 PM) [facility] DICTATED AND SIGNED BY: ELICEO MCALLISTER MD DATE: 08/15/191954 CC: TORREY GREGORIO MD; JUAN J VARGAS [address] [address] IMAGING REPORT Signed PATIENT: BALDOMERO PRESCOTT ACCOUNT: [id number] : 1950 LOCATION: ER AGE: 69 SEX: F EXAM STATUS: REG ER ORD. PHYSICIAN: PARESH LOYD DO REASON: Fall with right upper leg and knee pain PROCEDURE: RIGHT FEMUR XRAY 2 views right humerus and 4 view right knee dated 08/15/2019. No comparison available. Clinical data indication: Pain after injury. FINDINGS: 4 views of the right knee show normal bony alignment. There is a mildly displaced transverse fracture through the mid patella seen best on the lateral view. Distal humerus and proximal tibia intact. Mild tricompartmental degenerative changes. Small joint effusion. No definite loose body. 2 views of the right humerus show intact proximal humeral shaft. There is mild degenerative change at the hip joint. IMPRESSION: 1. Mildly displaced transverse fracture through the patella. 2. Small joint effusion. Electronically signed by: Eliceo Mcallister MD (08/15/2019 6:36 PM) [facility] DICTATED AND SIGNED BY: ELICEO MCALLISTER MD DATE: 08/15/191835 CC: TORREY GREGORIO MD; PARESH LOYD DO; JUAN J VARGAS MD [address] [address] IMAGING REPORT Signed PATIENT: BALDOMERO PRESCOTT ACCOUNT: [id number] : 1950 LOCATION: ER AGE: 69 SEX: F EXAM STATUS: REG ER ORD. PHYSICIAN: PARESH LOYD DO REASON: Fall with right shoulder and upper arm pain PROCEDURE: HUMERUS RIGHT 2 view right shoulder and two-view right humerus dated 08/15/2019. No comparison available. Clinical data indication: Pain after fall. FINDINGS: 2 views the right shoulder show a comminuted fracture of the proximal humerus with involvement of the surgical neck and greater tuberosity. There is mild medial displacement and angulation at the fracture site. Mild hypertrophic change of the AC joint. No additional bony abnormality. 2 views of the right humerus show intact mid and distal humeral shaft. No additional fractures are seen. IMPRESSION: Comminuted mildly displaced fracture of the proximal right humerus. Electronically signed by: Eliceo Mcallister MD (08/15/2019 6:33 PM) [facility] DICTATED AND SIGNED BY: ELICEO MCALLISTER MD DATE: 08/15/191832 CC: TORREY GREGORIO MD; PARESH LOYD DO; JUAN J VARGAS MD ~ [place] [address] IMAGING REPORT Signed PATIENT: BALDOMERO PRESCOTT ACCOUNT: [id number] : 1950 LOCATION: ER AGE: 69 SEX: F EXAM STATUS: REG ER ORD. PHYSICIAN: PARESH LOYD DO REASON: Fall with right shoulder and right anterior knee pain PROCEDURE: KNEE RIGHT 4V 2 views right humerus and 4 view right knee dated 08/15/2019. No comparison available. Clinical data indication: Pain after injury. FINDINGS: 4 views of the right knee show normal bony alignment. There is a mildly displaced transverse fracture through the mid patella seen best on the lateral view. Distal humerus and proximal tibia intact. Mild tricompartmental degenerative changes. Small joint effusion. No definite loose body. 2 views of the right humerus show intact proximal humeral shaft. There is mild degenerative change at the hip joint. IMPRESSION: 1. Mildly displaced transverse fracture through the patella. 2. Small joint effusion. Electronically signed by: Eliceo Mcallister MD (08/15/2019 6:36 PM) [facility] DICTATED AND SIGNED BY: ELICEO MCALLISTER MD DATE: 08/15/191835 CC: TORREY GREGORIO MD; PARESH LOYD DO; JUAN J VARGAS MD ~ [place] [address] IMAGING REPORT Signed PATIENT: BALDOMERO PRESCOTT ACCOUNT: [id number] : 1950 LOCATION: ER AGE: 69 SEX: F EXAM STATUS: REG ER ORD. PHYSICIAN: PARESH LOYD DO REASON: Fall with right shoulder and right knee pain PROCEDURE: SHOULDER 2+V RIGHT 2 view right shoulder and two-view right humerus dated 08/15/2019. No comparison available. Clinical data indication: Pain after fall. FINDINGS: 2 views the right shoulder show a comminuted fracture of the proximal humerus with involvement of the surgical neck and greater tuberosity. There is mild medial displacement and angulation at the fracture site. Mild hypertrophic change of the AC joint. No additional bony abnormality. 2 views of the right humerus show intact mid and distal humeral shaft. No additional fractures are seen. IMPRESSION: Comminuted mildly displaced fracture of the proximal right humerus. Electronically signed by: Eliceo Mcallister MD (08/15/2019 6:33 PM) [facility] DICTATED AND SIGNED BY: ELICEO MCALLISTER MD DATE: 08/15/191832 CC: TORREY GREGORIO MD; PARESH LOYD DO; JUAN J VARGAS MD ~ (JUAN J VARGAS MD) Course & Med Decision Making Course & Med Decision Making Pertinent Labs and Imaging studies reviewed. (See chart for details) Emergency department course: Patient arrived, was placed in bed, and tolerated exam well. IV access was established, she was given pain medicine. She was transported to and from radiology. Patient care was endorsed to the nighttime physician at 1800 with imaging findings pending.[] (PARESH LOYD DO) Course & Med Decision Making Patient still requiring frequent doses of 4 mg of morphine IV for pain relief. Discussed presentation, testing and tx. plan with Dr. Wheatley and Dr. Dalton. Pt. to be transfer to [facility] for further care. Distal neurovascular intact after splint & sling. Ambulance will not transport- on weather hold. Impression: 1. Slip and Fall 2. Proximal right comminuted humerus head fracture with some displacement 3. Right patellar fracture some displacement 4. History of ankylosing spondylitis 5. DM = gluc 127 6. Macrocytic 101 7. Mild Elevation AST 45 (JUAN J VARGAS MD) Dragon Disclaimer Dragon Disclaimer This electronic medical record was generated, in whole or in part, using a voice recognition dictation system. (PARESH LOYD DO) Departure Departure: Disposition: 01 HOME/RESIDENCE PRIOR TO ADM Condition: STABLE Referrals: TORREY GREGORIO MD (PCP) Dragon Disclaimer This chart was dictated in whole or in part using Voice Recognition software in a busy, high-work load, and often noisy Emergency Department environment. It may contain unintended and wholly unrecognized errors or omissions. (JUAN J VARGAS MD) PARESH LOYD DO Aug 15, 2019 17:26 JUAN J VARGAS MD Aug 15, 2019 19:37
[2019-08-15] MEDS: MORPHINE SULFATE 4 MG/ML DISP.SYRIN. IV/SQ PRN ×2 (17:33→20:25)
--- NOTE | 2019-08-15 18:36 | RAD ---
2 view right shoulder and two-view right humerus dated 08/15/2019. No comparison available. Clinical data indication: Pain after fall. FINDINGS: 2 views the right shoulder show a comminuted fracture of the proximal humerus with involvement of the surgical neck and greater tuberosity. There is mild medial displacement and angulation at the fracture site. Mild hypertrophic change of the AC joint. No additional bony abnormality. 2 views of the right humerus show intact mid and distal humeral shaft. No additional fractures are seen. IMPRESSION: Comminuted mildly displaced fracture of the proximal right humerus. Electronically signed by: Eliceo Mcallister MD (08/15/2019 6:33 PM) [facility]
--- NOTE | 2019-08-15 18:39 | RAD ---
2 views right humerus and 4 view right knee dated 08/15/2019. No comparison available. Clinical data indication: Pain after injury. FINDINGS: 4 views of the right knee show normal bony alignment. There is a mildly displaced transverse fracture through the mid patella seen best on the lateral view. Distal humerus and proximal tibia intact. Mild tricompartmental degenerative changes. Small joint effusion. No definite loose body. 2 views of the right humerus show intact proximal humeral shaft. There is mild degenerative change at the hip joint. IMPRESSION: 1. Mildly displaced transverse fracture through the patella. 2. Small joint effusion. Electronically signed by: Eliceo Mcallister MD (08/15/2019 6:36 PM) [facility]
[2019-08-15] MEDS ORDERED: MORPHINE SULFATE 4 MG/ML DISP.SYRIN. IV ONE ×2 (18:45→20:30)
[2019-08-15] MEDS ORDERED: IV RINGERS SOLUTION,LACTATED 1,000 ML IV SCH (19:30)
--- NOTE | 2019-08-15 19:59 | RAD ---
Single view chest dated 08/15/2019: Comparison made to 08/18/2018. Clinical Indication: Preop for fractures.. Findings: Single upright portable exam of the chest was performed. Heart size and mediastinal contours are within normal limits given technique. The lungs are clear without evidence of focal consolidation. Vascular interstitium is within normal limits. Proximal right humerus fracture again noted. Impression:: No acute radiographic abnormality. Electronically signed by: Eliceo Mcallister MD (08/15/2019 7:55 PM) [facility]
[2019-08-15 20:27] LABS: BASO % 1 % (0-3); EOS % 0 % (0-3); HEMATOCRIT 40.5 % (36.0-47.0); HEMOGLOBIN 13.1 g/dL (12.0-15.5); LYMPH # 1.1 x10^3/uL (1.0-4.8); LYMPH % 12 % (24-48); MEAN CORPUSCULAR HEMOGLOBIN 33 pg (25-35); MEAN CORPUSCULAR HGB CONC 33 g/dL (31-37); MEAN CORPUSCULAR VOLUME 101 fL (79-100); MONO # 0.5 x10^3/uL (0.0-1.1); MONO % 5 % (0-9); NEUT # 7.6 x10^3uL (1.8-7.7); NEUT % 82 % (31-73); PLATELET COUNT 145 x10^3/uL (140-400); RED BLOOD COUNT 4.02 x10^6/uL (3.50-5.40); WHITE BLOOD COUNT 9.2 x10^3/uL (4.0-11.0)
[2019-08-15 20:48] LABS: ALBUMIN 3.5 g/dL (3.4-5.0); CALCIUM 8.6 mg/dL (8.5-10.1); CREATININE 0.7 mg/dL (0.6-1.0); DIRECT BILIRUBIN 0.2 mg/dL (0.0-0.2); GFR 83.5; MAGNESIUM 1.9 mg/dL (1.8-2.4); TOTAL BILIRUBIN 0.6 mg/dL (0.2-1.0); TOTAL PROTEIN 6.9 g/dL (6.4-8.2)
[2019-08-15 21:40] LABS: SEDIMENTATION RATE 7 (0-25)
[2019-08-16] MEDS: MORPHINE SULFATE 4 MG/ML DISP.SYRIN. IV/SQ PRN (01:15)
[2019-08-16] MEDS ORDERED: MORPHINE SULFATE 4 MG/ML DISP.SYRIN. IV ONE (01:30)
[2019-08-16 02:23] VITALS: BP 152/73
== END 2019-08-16 02:50 | disposition short-term general hospital (02) ==
LOC: ER 17:12
DX: S42.291A Other displaced fracture of upper end of right humerus, initial encounter for closed fracture (principal); S82.031A Displaced transverse fracture of right patella, initial encounter for closed fracture; M45.9 Ankylosing spondylitis of unspecified sites in spine; E11.9 Type 2 diabetes mellitus without complications; D75.89 Other specified diseases of blood and blood-forming organs; R79.89 Other specified abnormal findings of blood chemistry; M19.90 Unspecified osteoarthritis, unspecified site; Z88.1 Allergy status to other antibiotic agents; Z88.8 Allergy status to other drugs, medicaments and biological substances; W00.0XXA Fall on same level due to ice and snow, initial encounter; Y93.H9 Activity, other involving exterior property and land maintenance, building and construction; Y92.59 Other trade areas as the place of occurrence of the external cause; Y99.8 Other external cause status
CPT/HCPCS: 29505; 36415; 71045; 73030; 73060; 73552; 73564; 80048; 80076; 82550; 83735; 83880; 84443; 84484; 85025; 85610; 85651; 85730; 96374; 96376; 99285; J2270; J7120

== ENCOUNTER → 2019-09-30 | Outpatient (CLI) | payer MEDICARE, BC ==
[~2019-09-30] MED LIST changes: +IOHEXOL 300 MG/ML 75 ML VIAL. IV ONE
--- NOTE | 2019-09-30 15:36 | RAD ---
Examination: CT CHEST W/CONTRAST History: Abnormal chest x-ray exam Comparison/Correlation: 08/15/2019 Portable Chest X-ray Exam, 08/27/2018 CT chest with contrast Findings: Axial images of chest were obtained following IV contrast. Sagittal and coronal reformatted images were provided. Thoracic aorta is unremarkable. 2 small hiatal hernia is present. Suture material of the stomach. No enlarged thoracic lymph nodes. Nonenlarged paratracheal and precarinal lymph nodes are present. Scattered patchy atelectasis and infiltrates are present throughout the lung polo. No pleural or pericardial effusions. Transverse comminuted fracture through the right humeral neck is again seen. Impression: Scattered bilateral patchy infiltrates and atelectasis are noted throughout the lung polo. These are notably increased as compared 08/27/2018 CT chest with contrast. Follow-up to resolution recommended. Small hiatal hernia. PQRS Compliance Statement: One or more of the following individualized dose reduction techniques were utilized for this examination: 1. Automated exposure control 2. Adjustment of the mA and/or kV according to patient size 3. Use of iterative reconstruction technique Electronically signed by: Ang Zelaya MD (09/30/2019 3:33 PM) [id number]
== END | disposition home or self-care (01) ==
LOC: CT 14:38
PROVIDERS: ATTEND Family Medicine
DX: J98.11 Atelectasis (principal); R91.8 Other nonspecific abnormal finding of lung field; K44.9 Diaphragmatic hernia without obstruction or gangrene
CPT/HCPCS: 71260; Q9967

== ENCOUNTER → 2020-05-15 | Outpatient (CLI) | payer MEDICARE, BC ==
[~2020-05-15] MED LIST changes: -IOHEXOL 300 MG/ML 75 ML VIAL. IV ONE
--- NOTE | 2020-05-15 15:34 | RAD ---
Study: CR SHOULDER 2+V RIGHT Indication: Fracture follow-up. Comparison: 08/15/2019 Findings: Chronic proximal humerus fracture deformity mainly involving the surgical neck and greater tuberosity. Bridging callus is present. Alignment is not significantly different from the prior. No malalignment across the glenohumeral or acromioclavicular joints. No superimposed acute fracture at the right shoulder girdle. Normal acromiohumeral interval. The visualized ribs are grossly intact and the right lung unremarkable. T4 vertebral body height loss is presumably chronic. Impression: No significant change in alignment of a chronic proximal humerus fracture now with bridging callus. No acute fracture seen at the right shoulder. Electronically signed by: JOSE M DUNCAN MD (05/15/2020 3:32 PM) [id number]
--- NOTE | 2020-05-15 15:37 | RAD ---
Study: CR KNEE RIGHT 3V Indication: Knee and shoulder pain. Comparison: 08/15/2019 Findings: Patella fixation construct is intact and without loosening. The patellar fracture has healed with residual articular surface deformity at its mid aspect. No acute fracture. Osteopenia. Tricompartmental osteoarthrosis. Slightly more pronounced lateral femorotibial compartment joint space narrowing now moderate. No large knee joint effusion. The patellar tendon appear somewhat thickened. Impression: 1. Intact patellar surgical hardware. Healed intervening fracture. No acute osseous abnormality. 2. Tricompartmental osteoarthrosis with slight progression of lateral femoral tibial compartment joint space narrowing which is now moderate. Electronically signed by: JOSE M DUNCAN MD (05/15/2020 3:34 PM) [id number]
== END | disposition home or self-care (01) ==
LOC: DXRAD 15:03
PROVIDERS: ATTEND Physician Assistant
DX: S42.291D Other displaced fracture of upper end of right humerus, subsequent encounter for fracture with routine healing (principal); S82.031D Displaced transverse fracture of right patella, subsequent encounter for closed fracture with routine healing; M17.11 Unilateral primary osteoarthritis, right knee; M85.811 Other specified disorders of bone density and structure, right shoulder; X58.XXXD Exposure to other specified factors, subsequent encounter
CPT/HCPCS: 73030; 73562